=== PATIENT | female | born 1955 | race Caucasian/White ===

== ENCOUNTER 2018-04-11 08:30 | Day surgery (SDC) | payer OTHER ==
[2018-04-11] MEDS ORDERED: PROPOFOL 500 MG/50 ML EMU IV ONE (09:40)
[2018-04-11] MEDS ORDERED: LIDOCAINE HCL 1% MPF 30 SOL ONE (09:40)
[2018-04-11 10:57] VITALS: BP 134/68; PULSE 57; RESP 20; TEMP 97.7; O2SAT 94
== END 2018-04-11 11:05 | disposition home or self-care (01) ==
LOC: SURG 08:30
PROVIDERS: ATTEND Surgery
DX: R10.84 Generalized abdominal pain (principal); R73.03 Prediabetes; K21.9 Gastro-esophageal reflux disease without esophagitis; K29.00 Acute gastritis without bleeding
CPT/HCPCS: 99001; J2001; J2704